=== PATIENT | male | born 1965 | race African-American/Black ===

== ENCOUNTER 2017-02-23 10:26 | Inpatient (IN) | payer MEDICAID ==
[2017-02-23 16:00] LABS: ADD MAN DIFF? NO
[2017-02-23 16:01] LABS: WHITE BLOOD COUNT 20.2 10^3/ul (4.8-10.8)
[2017-02-23 16:01] LABS: ABNORMAL IP MESSAGE 1; BASOPHIL # 0.1 10^3/ul (0.0-0.1); BASOPHILS % 0.3 % (0.0-2.0); EOSINOPHILS # 0.1 10^3/ul (0.0-0.5); EOSINOPHILS % 0.3 % (0.0-7.0); HEMOGLOBIN 12.7 g/dl (14.0-18.0); LYMPHOCYTES # 1.4 10^3/ul (0.8-2.9); LYMPHOCYTES % 6.7 % (15.0-51.0); MEAN CORPUSCULAR HEMOGLOBIN 33.4 pg (29.0-33.0); MEAN CORPUSCULAR HGB CONC 33.4 g/dl (32.0-37.0); MEAN PLATELET VOLUME 11.2 fl (7.4-10.4); MONOCYTE # 1.7 10^3/ul (0.3-0.9); MONOCYTES % 8.2 % (0.0-11.0); NEUTROPHIL # 16.7 10^3/ul (1.6-7.5); PLATELET COUNT 228 10^3/UL (140-415); POSITIVE DIFF @See below; RED CELL DISTRIBUTION WIDTH 12.2 % (11.5-14.5)
[2017-02-23] MEDS: ACETAMINOPHEN 325 MG TAB PO (16:05)
[2017-02-23] MEDS: PIPER-TAZO 3.375 GM IV (PMX) 100 ML IVPB ×2 (16:06→23:51)
[2017-02-23] MEDS: SODIUM CHLORIDE 0.9% 1L BAG IV* (16:06)
[2017-02-23 16:19] LABS: LACTIC ACID 1.6 mmol/L (0.5-2.0)
[2017-02-23 16:20] LABS: ALANINE AMINOTRANSFERASE 57 IU/L (13-69); ALBUMIN 3.9 g/dl (3.3-4.9); ALBUMIN/GLOBULIN RATIO 0.86; ALKALINE PHOSPHATASE 153 IU/L (42-121); ANION GAP 15 (8-16); ASPARTATE AMINO TRANSFERASE 72 IU/L (15-46); BILIRUBIN,INDIRECT 1.1 mg/dl (0-1.1); BILIRUBIN,TOTAL 1.1 mg/dl (0.2-1.3); BLOOD UREA NITROGEN 33 mg/dl (7-20); CALCIUM 9.4 mg/dl (8.4-10.2); CARBON DIOXIDE 26 mmol/L (21-31); CHLORIDE 104 mmol/L (97-110); CREATININE 1.69 mg/dl (0.61-1.24); GLUCOSE 113 mg/dl (70-220); POTASSIUM 4.1 mmol/L (3.5-5.1); SODIUM 141 mmol/L (135-144); TOTAL PROTEIN 8.4 g/dl (6.1-8.1)
[2017-02-23] MEDS: CLINDAMYCIN 900 MG/D5W (PMX) 50 ML IVPB (17:06)
[2017-02-23] MEDS: VANCOMYCIN 1 GM (PMX) 250 ML IVPB (17:55)
[2017-02-23] MEDS ORDERED: ONDANSETRON 4 MG INJ IV ×2 (18:30→19:00)
[2017-02-23] MEDS ORDERED: ACETAMINOPHEN 325 MG TAB PO (18:30)
[2017-02-23 18:49] LABS: LACTIC ACID 1.8 mmol/L (0.5-2.0)
[2017-02-23] MEDS ORDERED: DOCUSATE SODIUM 100 MG CAP PO (19:00)
[2017-02-23] MEDS ORDERED: HYDROCODONE/APAP (5/325) TAB PO (19:00)
[2017-02-23] MEDS ORDERED: MAGNESIUM HYDROXIDE 30ML CUP PO (19:00)
[2017-02-23] MEDS ORDERED: NACL 0.9% 3 ML SYG IV (19:00)
[2017-02-23] MEDS ORDERED: morphine 2 MG INJ IV (19:00)
[2017-02-23] MEDS ORDERED: VANCOMYCIN IV PER PHARMACY XX (19:00)
[2017-02-23] MEDS ORDERED: ZOLPIDEM 5 MG TAB PO (19:00)
[2017-02-23] MEDS: SOD CHLORIDE 0.9% 1,000 ML IV (20:53)
[2017-02-23 21:57] LABS: LACTIC ACID 1.2 mmol/L (0.5-2.0)
[2017-02-24] MEDS: VANCOMYCIN 1 GM 250 ML IVPB (00:35)
[2017-02-24] MEDS: SOD CHLORIDE 0.9% 1,000 ML IV ×4 (03:30→13:26)
[2017-02-24 05:34] LABS: ADD MAN DIFF? NO
[2017-02-24 05:49] LABS: WHITE BLOOD COUNT 13.9 10^3/ul (4.8-10.8)
[2017-02-24 05:49] LABS: BASOPHILS % 0.3 % (0.0-2.0); EOSINOPHILS # 0.2 10^3/ul (0.0-0.5); EOSINOPHILS % 1.7 % (0.0-7.0); HEMATOCRIT 27.7 % (42.0-52.0); HEMOGLOBIN 9.2 g/dl (14.0-18.0); LYMPHOCYTES # 1.3 10^3/ul (0.8-2.9); LYMPHOCYTES % 9.3 % (15.0-51.0); MEAN CORPUSCULAR HEMOGLOBIN 33.5 pg (29.0-33.0); MEAN CORPUSCULAR HGB CONC 33.2 g/dl (32.0-37.0); MEAN CORPUSCULAR VOLUME 100.7 fl (82.0-101.0); MEAN PLATELET VOLUME 11.2 fl (7.4-10.4); MONOCYTE # 1.2 10^3/ul (0.3-0.9); MONOCYTES % 8.8 % (0.0-11.0); NEUTROPHIL # 10.9 10^3/ul (1.6-7.5); NEUTROPHILS % 77.9 % (39.0-77.0); PLATELET COUNT 222 10^3/UL (140-415); RED BLOOD COUNT 2.75 10^6/ul (4.70-6.10); RED CELL DISTRIBUTION WIDTH 12.4 % (11.5-14.5)
[2017-02-24] MEDS: PIPER-TAZO 3.375 GM IV (PMX) 100 ML IVPB ×4 (05:59→23:44)
[2017-02-24 06:49] LABS: ANION GAP 11 (8-16); BLOOD UREA NITROGEN 26 mg/dl (7-20); CALCIUM 7.8 mg/dl (8.4-10.2); CARBON DIOXIDE 22 mmol/L (21-31); CHLORIDE 113 mmol/L (97-110); CHOL/HDL RATIO 7.7 RATIO; CHOLESTEROL 116 mg/dl (100-200); CREATININE 1.41 mg/dl (0.61-1.24); GLUCOSE 97 mg/dl (70-220); HDL CHOLESTEROL 15 mg/dl (28-71); LDL CHOLESTEROL,CALCULATED 28 mg/dl; MAGNESIUM 2.7 mg/dl (1.7-2.5); PHOSPHORUS 2.6 mg/dl (2.5-4.9); POTASSIUM 3.8 mmol/L (3.5-5.1); SODIUM 142 mmol/L (135-144); TRIGLYCERIDES 364 mg/dl (0-149)
[2017-02-24] MEDS: ENOXAPARIN 40 MG/0.4 ML SYG SC (08:58)
[2017-02-24] MEDS ORDERED: ENOXAPARIN 40 MG/0.4 ML SYG SC (09:00)
[2017-02-24 09:40] LABS: HEMOGLOBIN A1C 4.5 % (0-5.9)
[2017-02-24 10:40] LABS: FOLATE 9.3 ng/ml (2.8-20.0)
[2017-02-24] MEDS: VANCOMYCIN 750 MG in DEXTROSE 5% 150 ML IVPB (18:39)
[2017-02-24] MEDS: ATORVASTATIN 20 MG TAB PO (20:24)
[2017-02-25] MEDS: SOD CHLORIDE 0.9% 1,000 ML IV ×2 (03:18→11:37)
[2017-02-25] MEDS: PIPER-TAZO 3.375 GM IV (PMX) 100 ML IVPB ×3 (05:29→17:32)
[2017-02-25 06:00] LABS: HEMATOCRIT 28.4 % (42.0-52.0); HEMOGLOBIN 9.5 g/dl (14.0-18.0); MEAN CORPUSCULAR HEMOGLOBIN 33.8 pg (29.0-33.0); MEAN CORPUSCULAR HGB CONC 33.5 g/dl (32.0-37.0); MEAN CORPUSCULAR VOLUME 101.1 fl (82.0-101.0); MEAN PLATELET VOLUME 10.9 fl (7.4-10.4); PLATELET COUNT 296 10^3/UL (140-415); POSITIVE DIFF @See below; RED BLOOD COUNT 2.81 10^6/ul (4.70-6.10); RED CELL DISTRIBUTION WIDTH 12.1 % (11.5-14.5)
[2017-02-25] MEDS: VANCOMYCIN 750 MG in DEXTROSE 5% 150 ML IVPB ×2 (06:01→17:32)
[2017-02-25] MEDS: ACETAMINOPHEN 325 MG TAB PO (06:03)
[2017-02-25 06:04] LABS: ADD MAN DIFF? YES
[2017-02-25 07:25] LABS: ANION GAP 13 (8-16); BLOOD UREA NITROGEN 17 mg/dl (7-20); CALCIUM 8.2 mg/dl (8.4-10.2); CARBON DIOXIDE 21 mmol/L (21-31); CHLORIDE 113 mmol/L (97-110); CREATININE 1.22 mg/dl (0.61-1.24); GLUCOSE 89 mg/dl (70-220); POTASSIUM 3.9 mmol/L (3.5-5.1); SODIUM 143 mmol/L (135-144)
[2017-02-25] MEDS: ENOXAPARIN 40 MG/0.4 ML SYG SC (08:59)
[2017-02-25 11:42] LABS: ANISOCYTOSIS 3+ (0-0); BAND NEUTROPHILS #M 0.7 10^3/ul (0.0-0.6); BAND NEUTROPHILS % (M) 6 % (0-4); EOSINOPHILS % (M) 5 % (0-7); ERYTHROBLAST% (NRBC) (M) 1 % (0-0); GIANT THROMBO% (M) 3 % (0-0); LYMPHOCYTES #M 0.4 10^3/ul (0.8-2.9); LYMPHOCYTES % (M) 4 % (15-51); MONOCYTE #M 0.9 10^3/ul (0.3-0.9); MONOCYTES % (M) 8 % (0-11); PLATELET ESTIMATE NORMAL; POLYCHROMASIA 3+ (0-0); REACTIVE LYMPHOCYTES #M 0.2 10^3/ul (0.0-0.0); REACTIVE LYMPHOCYTES% (M) 2 % (0-0); SEG NEUT #M 9.1 10^3/ul (1.7-7.5); SEGMENTED NEUTROPHILS (M) % 75 % (39-77); SMUDGE%M 1 % (0-0)
[2017-02-25] MEDS: ATORVASTATIN 20 MG TAB PO (20:43)
[2017-02-26] MEDS: PIPER-TAZO 3.375 GM IV (PMX) 100 ML IVPB ×3 (00:07→12:35)
[2017-02-26] MEDS: ACETAMINOPHEN 325 MG TAB PO ×2 (04:42→20:51)
[2017-02-26] MEDS: SOD CHLORIDE 0.9% 1,000 ML IV ×2 (05:21→20:49)
[2017-02-26] MEDS: VANCOMYCIN 750 MG in DEXTROSE 5% 150 ML IVPB (06:36)
[2017-02-26] MEDS: ENOXAPARIN 40 MG/0.4 ML SYG SC (08:37)
[2017-02-26 10:37] LABS: ABNORMAL IP MESSAGE 1; HEMATOCRIT 29.7 % (42.0-52.0); HEMOGLOBIN 9.8 g/dl (14.0-18.0); MEAN CORPUSCULAR HEMOGLOBIN 33.1 pg (29.0-33.0); MEAN CORPUSCULAR VOLUME 100.3 fl (82.0-101.0); MEAN PLATELET VOLUME 10.4 fl (7.4-10.4); PLATELET COUNT 434 10^3/UL (140-415); POSITIVE DIFF @See below; RED BLOOD COUNT 2.96 10^6/ul (4.70-6.10); RED CELL DISTRIBUTION WIDTH 12.2 % (11.5-14.5)
[2017-02-26 10:37] LABS: WHITE BLOOD COUNT 10.5 10^3/ul (4.8-10.8)
[2017-02-26 10:38] LABS: ADD MAN DIFF? YES
[2017-02-26 10:57] LABS: VANCOMYCIN,TROUGH 16.2 ug/ml (10.0-20.0)
[2017-02-26 11:18] LABS: ANION GAP 11 (8-16); BLOOD UREA NITROGEN 11 mg/dl (7-20); CARBON DIOXIDE 26 mmol/L (21-31); CHLORIDE 108 mmol/L (97-110); GLUCOSE 92 mg/dl (70-220); POTASSIUM 4.3 mmol/L (3.5-5.1); SODIUM 141 mmol/L (135-144)
[2017-02-26 12:55] LABS: ANISOCYTOSIS 1+ (0-0); BAND NEUTROPHILS #M 0.4 10^3/ul (0.0-0.6); BAND NEUTROPHILS % (M) 4 % (0-4); EOSINOPHILS % (M) 6 % (0-7); ERYTHROBLAST% (NRBC) (M) 2 % (0-0); GIANT THROMBO% (M) 1 % (0-0); LYMPHOCYTES #M 0.8 10^3/ul (0.8-2.9); LYMPHOCYTES % (M) 8 % (15-51); METAMYELOCYTES #M 0.1 10^3/ul (0.0-0.0); METAMYELOCYTES %M 1 % (0-0); MONOCYTE #M 0.8 10^3/ul (0.3-0.9); MONOCYTES % (M) 8 % (0-11); MYELOCYTES #M 0.2 10^3/ul (0.0-0.0); MYELOCYTES % (M) 2 % (0-0); PLATELET ESTIMATE NORMAL; PROMYELOCYTES #M 0.1 10^3/ul (0-0); PROMYELOCYTES % (M) 1 % (0-0); REACTIVE LYMPHOCYTES #M 0.1 10^3/ul (0.0-0.0); REACTIVE LYMPHOCYTES% (M) 1 % (0-0); SEG NEUT #M 7.4 10^3/ul (1.7-7.5); SEGMENTED NEUTROPHILS (M) % 70 % (39-77)
[2017-02-26] MEDS: CEFTRIAXONE 1 GM/50 ML (PMX) 50 ML IVPB (14:13)
[2017-02-26] MEDS: ATORVASTATIN 20 MG TAB PO (20:49)
[2017-02-27] MEDS: ENOXAPARIN 40 MG/0.4 ML SYG SC (09:15)
[2017-02-27] MEDS: ACETAMINOPHEN 325 MG TAB PO ×2 (09:56→21:02)
[2017-02-27] MEDS: SOD CHLORIDE 0.9% 1,000 ML IV (12:06)
[2017-02-27 12:28] LABS: ADD MAN DIFF? NO
[2017-02-27 12:29] LABS: ABNORMAL IP MESSAGE 1; BASOPHIL # 0.1 10^3/ul (0.0-0.1); BASOPHILS % 0.8 % (0.0-2.0); EOSINOPHILS # 0.2 10^3/ul (0.0-0.5); HEMATOCRIT 30.9 % (42.0-52.0); HEMOGLOBIN 10.4 g/dl (14.0-18.0); LYMPHOCYTES % 9.1 % (15.0-51.0); MEAN CORPUSCULAR HEMOGLOBIN 33.3 pg (29.0-33.0); MEAN CORPUSCULAR HGB CONC 33.7 g/dl (32.0-37.0); MEAN PLATELET VOLUME 9.7 fl (7.4-10.4); MONOCYTE # 0.9 10^3/ul (0.3-0.9); MONOCYTES % 8.4 % (0.0-11.0); NEUTROPHIL # 7.8 10^3/ul (1.6-7.5); NEUTROPHILS % 74.3 % (39.0-77.0); PLATELET COUNT 518 10^3/UL (140-415); POSITIVE DIFF @See below; RED BLOOD COUNT 3.12 10^6/ul (4.70-6.10); RED CELL DISTRIBUTION WIDTH 12.1 % (11.5-14.5)
[2017-02-27 12:29] LABS: WHITE BLOOD COUNT 10.4 10^3/ul (4.8-10.8)
[2017-02-27] MEDS: CEFTRIAXONE 1 GM/50 ML (PMX) 50 ML IVPB (12:38)
[2017-02-27 12:50] LABS: ANION GAP 11 (8-16); BLOOD UREA NITROGEN 13 mg/dl (7-20); CALCIUM 9.3 mg/dl (8.4-10.2); CARBON DIOXIDE 26 mmol/L (21-31); CHLORIDE 108 mmol/L (97-110); CREATININE 1.14 mg/dl (0.61-1.24); GLUCOSE 86 mg/dl (70-220); POTASSIUM 4.2 mmol/L (3.5-5.1); SODIUM 141 mmol/L (135-144)
[2017-02-27] MEDS: ATORVASTATIN 20 MG TAB PO (21:02)
[2017-02-28] MEDS: SOD CHLORIDE 0.9% 1,000 ML IV ×2 (03:21→16:45)
[2017-02-28] MEDS: ENOXAPARIN 40 MG/0.4 ML SYG SC (08:19)
[2017-02-28 11:43] LABS: ADD MAN DIFF? NO
[2017-02-28 11:46] LABS: BASOPHIL # 0.1 10^3/ul (0.0-0.1); BASOPHILS % 0.8 % (0.0-2.0); EOSINOPHILS # 0.2 10^3/ul (0.0-0.5); EOSINOPHILS % 2.3 % (0.0-7.0); HEMATOCRIT 32.6 % (42.0-52.0); HEMOGLOBIN 10.8 g/dl (14.0-18.0); LYMPHOCYTES # 1.2 10^3/ul (0.8-2.9); LYMPHOCYTES % 12.6 % (15.0-51.0); MEAN CORPUSCULAR HEMOGLOBIN 33.5 pg (29.0-33.0); MEAN CORPUSCULAR HGB CONC 33.1 g/dl (32.0-37.0); MEAN CORPUSCULAR VOLUME 101.2 fl (82.0-101.0); MEAN PLATELET VOLUME 9.9 fl (7.4-10.4); MONOCYTE # 0.9 10^3/ul (0.3-0.9); MONOCYTES % 9.1 % (0.0-11.0); PLATELET COUNT 585 10^3/UL (140-415); RED BLOOD COUNT 3.22 10^6/ul (4.70-6.10); RED CELL DISTRIBUTION WIDTH 12.2 % (11.5-14.5)
[2017-02-28 11:46] LABS: WHITE BLOOD COUNT 9.7 10^3/ul (4.8-10.8)
[2017-02-28 12:21] LABS: PHOSPHORUS 3.4 mg/dl (2.5-4.9)
[2017-02-28] MEDS: CEFTRIAXONE 1 GM/50 ML (PMX) 50 ML IVPB (12:21)
[2017-02-28 12:22] LABS: ANION GAP 14 (8-16); BLOOD UREA NITROGEN 13 mg/dl (7-20); CALCIUM 9.5 mg/dl (8.4-10.2); CARBON DIOXIDE 27 mmol/L (21-31); CHLORIDE 106 mmol/L (97-110); CREATININE 1.27 mg/dl (0.61-1.24); GLUCOSE 81 mg/dl (70-220); SODIUM 143 mmol/L (135-144)
[2017-02-28] MEDS: ACETAMINOPHEN 325 MG TAB PO (20:17)
[2017-02-28] MEDS: ATORVASTATIN 20 MG TAB PO (20:17)
[2017-03-01] MEDS: SOD CHLORIDE 0.9% 1,000 ML IV (06:54)
[2017-03-01] MEDS: ENOXAPARIN 40 MG/0.4 ML SYG SC (08:42)
[2017-03-01 12:16] LABS: ADD MAN DIFF? NO
[2017-03-01 12:20] LABS: WHITE BLOOD COUNT 8.5 10^3/ul (4.8-10.8)
[2017-03-01 12:20] LABS: BASOPHIL # 0.1 10^3/ul (0.0-0.1); BASOPHILS % 0.7 % (0.0-2.0); EOSINOPHILS # 0.2 10^3/ul (0.0-0.5); EOSINOPHILS % 2.2 % (0.0-7.0); HEMATOCRIT 31.5 % (42.0-52.0); HEMOGLOBIN 10.4 g/dl (14.0-18.0); LYMPHOCYTES # 1.8 10^3/ul (0.8-2.9); LYMPHOCYTES % 20.9 % (15.0-51.0); MEAN CORPUSCULAR HEMOGLOBIN 33.8 pg (29.0-33.0); MEAN CORPUSCULAR VOLUME 102.3 fl (82.0-101.0); MEAN PLATELET VOLUME 9.5 fl (7.4-10.4); MONOCYTE # 0.9 10^3/ul (0.3-0.9); MONOCYTES % 10.9 % (0.0-11.0); NEUTROPHIL # 5.4 10^3/ul (1.6-7.5); NEUTROPHILS % 63.9 % (39.0-77.0); PLATELET COUNT 581 10^3/UL (140-415); RED BLOOD COUNT 3.08 10^6/ul (4.70-6.10); RED CELL DISTRIBUTION WIDTH 12.3 % (11.5-14.5)
[2017-03-01 12:38] LABS: ANION GAP 13 (8-16); BLOOD UREA NITROGEN 14 mg/dl (7-20); CALCIUM 9.2 mg/dl (8.4-10.2); CARBON DIOXIDE 26 mmol/L (21-31); CHLORIDE 107 mmol/L (97-110); GLUCOSE 85 mg/dl (70-220); MAGNESIUM 2.1 mg/dl (1.7-2.5); POTASSIUM 4.3 mmol/L (3.5-5.1); SODIUM 142 mmol/L (135-144)
[2017-03-01 12:38] LABS: PHOSPHORUS 3.9 mg/dl (2.5-4.9)
[2017-03-01] MEDS: CEFTRIAXONE 1 GM/50 ML (PMX) 50 ML IVPB (13:00)
== END 2017-03-01 17:30 | disposition home or self-care (01) | DRG 872 ==
LOC: E/R 10:26 → MS1 18:17
DX: A41.9 Sepsis, unspecified organism (principal); N17.9 Acute kidney failure, unspecified; L03.116 Cellulitis of left lower limb; D53.9 Nutritional anemia, unspecified; E78.1 Pure hyperglyceridemia; B95.61 Methicillin susceptible Staphylococcus aureus infection as the cause of diseases classified elsewhere
CPT/HCPCS: 36415; 80048; 80053; 80061; 80202; 82607; 82746; 83036; 83605; 83735; 84100; 85025; 87040; 87070; 93971; 96361; 96374; 96375; 97110; 97116; 97163; 99285-25